=== PATIENT | female | born 1955 | race Caucasian/White ===

== ENCOUNTER → 2022-10-08 | Outpatient (CLI) | payer MEDICARE ==
--- NOTE | 2022-10-08 13:50 | US ---
EXAMINATION TYPE: US abdomen complete DATE OF EXAM: 10/08/2022 COMPARISON: NONE CLINICAL HISTORY: R10.9 ABD PAIN. TECHNIQUE: Multiple sonographic images of the abdomen are obtained. FINDINGS: EXAM MEASUREMENTS: Liver Length: 13.0 cm Gallbladder Wall: 0.2 cm CBD: 0.2 cm Spleen: 9.3 cm Right Kidney: 10.2 x 4.6 x 4.6 cm Left Kidney: 10.4 x 4.8 x 5.3 cm HARDWARE DESIGNER NOTES: Patient of large body habitus with extensive overlying bowel gas, technically difficult, limited stud y. Pancreas: Obscured by bowel gas Liver: wnl Gallbladder: wnl Evidence for sonographic Humphries's sign: no CBD: limited view, wnl as seen Spleen: wnl Right Kidney: No hydronephrosis or masses seen Left Kidney: No hydronephrosis, cyst measuring 1.6 x 0.9 x 1.8cm Upper IVC: wnl Abd Aorta: proximal and bifurcation obscured by overlying bowel gas, portions visualized wnl The liver is homogenous. The intrahepatic portion of the. The proximal abdominal aorta is nonvisuali zed due to overlying bowel gas. There is no evidence of cholelithiasis. Common bile duct is unremar kable. The visualized portions of the pancreas are homogenous. The spleen is unremarkable. Kidneys are symmetric and free of hydronephrosis. A cyst is demonstrated within the left kidney measuring up to 1.8 cm. IMPRESSION: 1. No acute abdominal process. 2. Left renal cyst.
== END | disposition home or self-care (01) ==
LOC: RADUSWWP 13:04
PROVIDERS: ATTEND Family Medicine
DX: N28.1 Cyst of kidney, acquired (principal)
CPT/HCPCS: 76700

== ENCOUNTER → 2022-10-28 | Outpatient (CLI) | payer MEDICARE ==
[2022-10-28 16:32] LABS: African American GFR (CKD) >90 (>60 ml/min/1.73 sqM); Blood Urea Nitrogen 16 mg/dL (7-17); Non-African American GFR(CKD) 79 (>60 ml/min/1.73 sqM)
--- NOTE | 2022-10-28 18:49 | CT ---
EXAMINATION TYPE: CT abdomen wo/w con DATE OF EXAM: 10/28/2022 COMPARISON: Abdominal ultrasound October 08, 2022 HISTORY: Cyst on kidney. Abnormal ultrasound. CT DLP: 2528 mGycm Automated exposure control for dose reduction was used. TECHNIQUE: Helical acquisition of images was performed from the lung bases through the top of iliac crest to include entire abdomen. CONTRAST: Performed without Oral Contrast and without and with IV Contrast, patient injected with 100cc mL of I sovue 300. FINDINGS: LUNG BASES: Slightly elevated right hemidiaphragm. LIVER/GB: No significant abnormality is appreciated. PANCREAS: No significant abnormality is seen. SPLEEN: No significant abnormality is seen. ADRENALS: There is low dense thickening to both adrenal glands with slight nodularity favoring benign lipid rich hyperplasia and/or adenomas. KIDNEYS: Noncontrast images show no renal calculi bilaterally. Postcontrast images show symmetric cor tical medullary uptake without hydronephrosis seen bilaterally. There is a partially exophytic 2.1 cm thin-walled cyst posteriorly upper pole of the left kidney axial series 10 image 36. There are a few additional tiny subcentimeter hypodense lesions scattered throughout both kidneys favoring additiona l simple cysts not clearly seen on ultrasound. No concerning solid or cystic renal mass is evident. BOWEL: Moderate-sized hiatal hernia. Diverticula are seen in the visualized portion of the sigmoid c olon. Normal-appearing appendix from base of cecum. No suspicious small or large bowel dilatation. LYMPH NODES: No significant abnormality is seen. OSSEOUS STRUCTURES: Mild to moderate disc space narrowing and vacuum disc phenomenon at L4-L5 level. Facet arthropathy lower lumbar levels. FREE AIR: No free air is visualized. OTHER: Mild calcified plaque of the aorta extends into branch vessels. IMPRESSION: Confirmation of simple appearing 2.1 cm thin-walled cyst upper pole of the left kidney. A dditional subcentimeter lesions on CT not clearly seen on ultrasound to small to further characterize but strongly suspected benign.
== END | disposition home or self-care (01) ==
LOC: RADCTMAIN 15:32
PROVIDERS: ATTEND Family Medicine
DX: N28.1 Cyst of kidney, acquired (principal)
CPT/HCPCS: 82565; 84520; 74170; 36415; Q9967

== ENCOUNTER → 2023-11-24 | Outpatient (CLI) | payer MEDICARE ==
--- NOTE | 2023-11-24 08:50 | CTL ---
EXAMINATION TYPE: CT Low Dose Lung DATE OF EXAM ORDERED: 11/24/2023 HISTORY: . Lung cancer screening CT DLP: 79 mGycm Automated exposure control for dose reduction was used. SCREENING VISIT: Additional COMPARISON: None TECHNIQUE: Low dose computed tomography scan was performed through the chest at 1 mm thick sections a nd reconstructed images in the coronal plane at [address] DIAGNOSTIC QUALITY: Limited, but interpretable FINDINGS: LUNG NODULES: Present, detailed below: 1. There is a 0.6 cm nodule within the periphery of the right midlung. Series 4 image 128. 2. There is calcification in the periphery of the posterior medial right lung measuring 1.1 cm. Serie s 4 image 211. LUNGS: COPD: Severity: None Fibrosis: Severity: None Lymph nodes: None Other findings: None RIGHT PLEURAL SPACE: Effusion: None Calcification: Minimal posterior medial lung base Thickening: None Pneumothorax: None LEFT PLEURAL SPACE: Effusion: None Calcification: None Thickening: None Pneumothorax: None HEART: Heart Size: Normal Coronary calcification: Minimal Pericardial effusion: None OTHER FINDINGS: Upper abdomen: There is a moderate size hiatal hernia. Bony thorax: Normal Supraclavicular region: Normal Other: The ascending thoracic aorta at the main pulmonary artery is 3.1 cm. Main pulmonary artery at the bifurcation is 2.6 cm. IMPRESSION: 1. Probably benign findings FOLLOW UP CT CHEST RECOMMENDATION: Follow-up CT chest in [address] LUNG RAD: Lung-Rad 3 Probably Benign
== END | disposition home or self-care (01) ==
LOC: RADCTMAIN 07:58
PROVIDERS: ATTEND Family Medicine
DX: Z12.2 Encounter for screening for malignant neoplasm of respiratory organs (principal); F17.210 Nicotine dependence, cigarettes, uncomplicated
CPT/HCPCS: 71271

== ENCOUNTER → 2024-05-25 | Outpatient (CLI) | payer MEDICARE ==
--- NOTE | 2024-06-12 12:47 | CTL ---
Site ID synapse default Patient Rain Castillo ID [id number] Age/Gender: 69Y, F Order # N/A Procedure CT LOW DOSE LUNG Date 05/25/2024 2:16:00 PM EXAMINATION TYPE: CT Low Dose Lung DATE OF EXAM ORDERED: 05/25/2024 HISTORY: Personal history of nicotine dependency. Solitary pulmonary nodule. Lung cancer screening CT DLP: 84.[address] CTDI: 2.40 mGy Automated exposure control for dose reduction was used. SCREENING VISIT: Follow-up COMPARISON: CT low-dose lung cancer screening 11/26/2023 TECHNIQUE: Low dose computed tomography scan was performed through the chest at 1 mm thick sections a nd reconstructed images in multiple planes at 1 mm and [address] DIAGNOSTIC QUALITY: Satisfactory FINDINGS: Nodules: Right lower lobe medial calcified granuloma redemonstrated. Additional stable punctate right lower lo be calcific granuloma. Stable solid right lower lobe 6.1 mm pulmonary nodule (series 4, image 139). No new or enlarging pulm onary nodules. LUNGS: COPD: Severity: None Fibrosis: Severity: None Lymph nodes: Mildly prominent stable prevascular space lymph node measuring less than 1 cm short axis . Stable enlarged pretracheal lymph node measuring increased size of pretracheal lymph node measuring 1.1 cm short axis, previously 0.7 cm (series 5 image 20). Other findings: None RIGHT PLEURAL SPACE: Effusion: None Calcification: None Thickening: None Pneumothorax: None LEFT PLEURAL SPACE: Effusion: None Calcification: None Thickening: None Pneumothorax: None HEART: Heart Size: Normal, aortic valvular calcifications. Coronary Calcification: None Pericardial Effusion: None OTHER FINDINGS: Upper abdomen: Moderate size hiatal hernia redemonstrated. Bony thorax: None Supraclavicular region: None Other: None IMPRESSION: 1. Stable right lower lobe 6.1 mm pulmonary nodule. No new or enlarging pulmonary nodules. 2. Mild increase in size of 1.1 cm nonspecific enlarged pretracheal lymph node, previously 0.7 cm. M ay be reactive versus other etiologies. 3. Moderate-sized hiatal hernia. CT LUNG RAD AND CT CHEST RECOMMENDATION: Lung-Rad 2 Benign Appearance or Behavior: Continue annual sc reening with LDCT in 12 months. S Modifier (other clinically significant findings): S
== END | disposition home or self-care (01) ==
LOC: RADCTMAIN 13:55
PROVIDERS: ATTEND Family Medicine
DX: Z12.2 Encounter for screening for malignant neoplasm of respiratory organs (principal); K44.9 Diaphragmatic hernia without obstruction or gangrene; R91.1 Solitary pulmonary nodule; Z87.891 Personal history of nicotine dependence
CPT/HCPCS: 71271

== ENCOUNTER → 2024-08-20 | Outpatient (CLI) | payer MEDICARE ==
[2024-08-20 14:23] LABS: INR 0.9 (<1.2); Partial Thromboplastin Time 24.5 sec (22.0-30.0); Prothrombin Time 10.2 sec (10.0-12.5)
[2024-08-20 22:23] LABS: Cardiolipin Ab IgG Interp Negative (Negative); Cardiolipin Ab IgM Interp Negative (Negative); Cardiolipin IgA Antibody <2.0 U/mL; Cardiolipin IgM Antibody <1.5 U/mL
[2024-08-21 14:15] LABS: APTT 39 Sec(s) (<43); Dilute Russell Viper Venom 33 Sec(s) (<44)
== END | disposition home or self-care (01) ==
LOC: LABWHC1 13:02
PROVIDERS: ATTEND Psychiatry & Neurology Neurology
DX: I63.9 Cerebral infarction, unspecified (principal); I67.9 Cerebrovascular disease, unspecified
CPT/HCPCS: 36415; 83036; 83090; 85610; 85613; 85652; 85730; 86038; 86147